=== PATIENT | female | born 1955 | race African-American/Black ===

== ENCOUNTER 2017-06-09 07:30 | Emergency (ER) | payer OTHER, MEDICAID ==
[~2017-06-09] VITALS: Ht 170.2 cm; Wt 105.0 kg
[2017-06-09] VITALS (7 sets, daily range): BP systolic 134–231; BP diastolic 73–110; PULSE 70–78; RESP 18–20; TEMP 98; O2SAT 94–98
[~2017-06-09 07:30] MED LIST: ENAL20TA81 PO; FLEX10TA PO; GLUC10TA3 PO; HYDR-2768 PO; JANU50TA9 PO; LORT7.5T3 PO; METO50CR PO
--- NOTE | 2017-06-09 07:47 | PD ---
HPI Chief Complaint: Hypertension Time Seen by Provider: 07:46 Travel History International Travel<30 days: No Contact w/Intl Traveler<30days: No Traveled to known affect area: No History of Present Illness HPI 61-year-old female came to the emergency room with history of headache and hypertension. Patient says that the headache has been going on for past 3-4 days. It came upon slowly and currently it is 8 out of 10. It's on the top of her head. No radiation. She usually does not get headache. Her blood pressure when she checked and was 231 systolic. Patient has history of hypertension and she had gone to see her primary care yesterday who had prescribed her a new medication that was called into the pharmacy but patient or her does not know the name of the medication. She appeared to be in some distress. [facility] Past Medical History Narrative Medical List of her past medical, surgical, social and family history is reviewed from the nursing note. Heart Rhythm Problems: No Cancer: No Cardiac Catheterization: No Cardiovascular Problems: No High Cholesterol: Yes Chest Pain: Yes Congestive Heart Failure: No Diabetes: Yes Diminished Hearing: No Endocrine: Yes Genitourinary: No Hepatitis: No Hiatal Hernia: No Hypertension: Yes Immune Disorder: No Musculoskeletal: Yes (back and right shoulder and neck) Neurologic: No Psychiatric: No Respiratory: No Immunizations Current: No Myocardial Infarction: No Thyroid Disease: Yes Tubal Ligation: Yes Past Surgical History AICD: No Coronary Artery Bypass Graft: No Endocrine Surgery: Yes (partial thyroidectomy) Genitourinary Surgery: Yes (tubaligation) Joint Replacement: No Pacemaker: No Social History Alcohol Use: Yes (BEER/OCCASIONALLY) Tobacco Use: No Substance Use: No Allergies-Medications (Allergen,Severity, Reaction): Coded Allergies: No Known Allergies (Verified , 06/09/17) Comments No known drug allergies Reported Meds & Prescriptions Reported Meds & Active Scripts Active Reported Aspirin Low Dose (Aspirin) 81 Mg Chew 81 Mg CHEW DAILY Enalapril (Enalapril Maleate) 20 Mg Tab 20 Mg PO DAILY Janumet (Sitagliptin-Metformin) 50-1,000 Mg Tab 1 Tab PO BID Rosuvastatin (Rosuvastatin Calcium) 10 Mg Tab 10 Mg PO HS Allopurinol 300 Mg Tab 300 Mg PO DAILY Glipizide 10 Mg Tab 10 Mg PO DAILY Take 30 minutes before a meal Metoprolol Tartrate 50 Mg Tab 50 Mg PO DAILY Narrative Medication List of her home medications reviewed from the nursing note. Review of Systems Except as stated in HPI: all other systems reviewed are Neg Cardiovascular: Positive: Syncope Physical Exam Narrative GENERAL: Awake, alert, obese, moderate distress SKIN: Focused skin assessment warm/dry. HEAD: Atraumatic. Normocephalic. EYES: Pupils equal and round. No scleral icterus. No injection or drainage. ENT: No nasal bleeding or discharge. Mucous membranes pink and moist. NECK: Trachea midline. No JVD. CARDIOVASCULAR: Regular rate and rhythm. No murmur appreciated. RESPIRATORY: No accessory muscle use. Clear to auscultation. Breath sounds equal bilaterally. GASTROINTESTINAL: Abdomen soft, non-tender, nondistended. Hepatic and splenic margins not palpable. MUSCULOSKELETAL: No obvious deformities. No clubbing. No cyanosis. No edema. NEUROLOGICAL: Awake and alert. No obvious cranial nerve deficits. Motor grossly within normal limits. Normal speech. PSYCHIATRIC: Appropriate mood and affect; insight and judgment normal. Data Data Last Documented VS Orders Orders Clonidine (Catapres) (06/09/17 08:15) Labetalol Inj (Trandate Inj) (06/09/17 08:15) Complete Blood Count With Diff (06/09/17 08:59) Basic Metabolic Panel (Bmp) (06/09/17 08:59) Ct Brain W/O Iv Contrast(Rout) (06/09/17 08:59) Ecg Monitoring (06/09/17 08:59) Iv Access Insert/Monitor (06/09/17 08:59) Oximetry (06/09/17 08:59) Sodium Chloride 0.9% Flush (Ns Flush) (06/09/17 09:00) Acetaminophen (Tylenol) (06/09/17 09:00) Metoclopramide Inj (Reglan Inj) (06/09/17 09:00) Sodium Chlorid 0.9% 500 Ml Inj (Ns 500 M (06/09/17 09:00) Labs Laboratory Tests Test 06/09/17 09:05 White Blood Count 5.9 TH/MM3 Red Blood Count 4.21 MIL/MM3 Hemoglobin 11.7 GM/DL Hematocrit 36.3 % Mean Corpuscular Volume 86.2 FL Mean Corpuscular Hemoglobin 27.8 PG Mean Corpuscular Hemoglobin Concent 32.2 % Red Cell Distribution Width 16.9 % Platelet Count 233 TH/MM3 Mean Platelet Volume 7.9 FL Neutrophils (%) (Auto) 45.8 % Lymphocytes (%) (Auto) 24.5 % Monocytes (%) (Auto) 11.2 % Eosinophils (%) (Auto) 17.9 % Basophils (%) (Auto) 0.6 % Neutrophils # (Auto) 2.7 TH/MM3 Lymphocytes # (Auto) 1.4 TH/MM3 Monocytes # (Auto) 0.7 TH/MM3 Eosinophils # (Auto) 1.1 TH/MM3 Basophils # (Auto) 0.0 TH/MM3 CBC Comment DIFF FINAL Differential Comment Blood Urea Nitrogen 26 MG/DL Creatinine 1.34 MG/DL Random Glucose 132 MG/DL Calcium Level 9.3 MG/DL Sodium Level 142 MEQ/L Potassium Level 4.0 MEQ/L Chloride Level 112 MEQ/L Carbon Dioxide Level 22.2 MEQ/L Anion Gap 8 MEQ/L Estimat Glomerular Filtration Rate 49 ML/MIN MDM Medical Decision Making Medical Screen Exam Complete: Yes Emergency Medical Condition: Yes Medical Record Reviewed: Yes Differential Diagnosis Essential hypertension, hypertensive crisis, hypertensive urgency, intracranial bleed Narrative Course 10:17 AM patient was given by mouth clonidine and IV labetalol to bring the blood pressure down. Blood test results are within normal limit and the CAT scan of her head is negative. I had ordered medication for headache which patient has not received yet. Upon reassessment her blood pressure has come down to 130 systolic. Patient says her headache is still the same. I have asked the nurse to give her the medication. I intend to discharge her home. Meanwhile her called the pharmacy upon my request to find out the medication name that was prescribed by her primary care and it is amlodipine 5 mg. She needs to get the prescription filled so that she can start taking the medication and keep the blood pressure under control. Procedures EKG Prior to Arrival: No Diagnosis Primary Impression: Hypertensive crisis Additional Impression: Headache Qualified Codes: R51 - Headache Referrals: Primary Care Physician Additional Instructions: Please follow-up with your primary care next couple days so that he can be reevaluated in terms of your blood pressure. Please start taking the new medication for blood pressure that your primary care has prescribed as soon as possible. Return to the ER if the condition worsens or any other new concerns. Med/Other Pt SpecificInfo: No Change to Meds Disposition: 01 DISCHARGE HOME Condition: Stable Meseret Almanzar MD Jun 09, 2017 07:47
[2017-06-09] MEDS ORDERED: JANU50TA8 PO (07:59)
[2017-06-09] MEDS ORDERED: ENAL20TA PO (07:59)
[2017-06-09] MEDS ORDERED: ASPI81CH37 CHEW (07:59)
[2017-06-09] MEDS ORDERED: ROSU1TAB6 PO (07:59)
[2017-06-09] MEDS ORDERED: METO50TA PO (07:59)
[2017-06-09] MEDS ORDERED: GLIP10TA6 PO (07:59)
[2017-06-09] MEDS ORDERED: ALLO300T2 PO (07:59)
[2017-06-09] MEDS ORDERED: LABETALOL HCL 100 MG/20 ML VIAL IV PUSH ONE (08:15)
[2017-06-09] MEDS ORDERED: cloNIDine HCL 0.1 MG TAB PO ONE (08:15)
[2017-06-09] MEDS ORDERED: SODIUM CHLORID 0.9% 500 ML INJ 500 ML IV ONE (09:00)
[2017-06-09] MEDS ORDERED: SODIUM CHLORIDE 0.9% FLUSH 10 ML FLUSH IVF PRN (09:00)
[2017-06-09] MEDS ORDERED: ACETAMINOPHEN 325 MG TAB PO ONE (09:00)
[2017-06-09] MEDS ORDERED: METOCLOPRAMIDE HCL 10 MG/2 ML VIAL IVP ONE (09:00)
[2017-06-09 09:23] LABS: AUTOMATED NEUTROPHIL # 2.7 TH/MM3 (1.8-7.7); BASOPHIL % 0.6 % (0.0-2.0); EOSINOPHIL # 1.1 TH/MM3 (0-0.4); EOSINOPHIL % 17.9 % (0.0-4.0); HEMATOCRIT 36.3 % (35.0-46.0); HEMO FLAGS DIFF FINAL; LYMPH % 24.5 % (9.0-44.0); LYMPHOCYTE # 1.4 TH/MM3 (1.0-4.8); MEAN CELL VOLUME 86.2 FL (80.0-100.0); MEAN CORPUSCULAR HEMOGLOBIN 27.8 PG (27.0-34.0); MEAN CORPUSCULAR HGB CONC 32.2 % (32.0-36.0); MONO % 11.2 % (0.0-8.0); NEUT % 45.8 % (16.0-70.0); PLATELET COUNT 233 TH/MM3 (150-450); RED BLOOD COUNT 4.21 MIL/MM3 (4.00-5.30); RED CELL DISTRIBUTION WIDTH 16.9 % (11.6-17.2); WHITE BLOOD COUNT 5.9 TH/MM3 (4.0-11.0)
[2017-06-09 09:47] LABS: BICARBONATE 22.2 MEQ/L (21.0-32.0)
--- NOTE | 2017-06-09 10:08 | RADRPT ---
EXAM DATE/TIME: 06/09/2017 09:52 [facility] COMPARISON: No previous studies available for comparison. INDICATIONS : Cephalgia. RADIATION DOSE: 56.35 CTDIvol (mGy) MEDICAL HISTORY : Diabetes mellitus type 2. Hypertension. SURGICAL HISTORY : Tubal ligation. ENCOUNTER: Initial ACUITY: 1 day PAIN SCALE: 5/10 LOCATION: cranial TECHNIQUE: Multiple contiguous axial images were obtained of the head. Using automated exposure control and adj ustment of the mA and/or kV according to patient size, radiation dose was kept as low as reasonably a chievable to obtain optimal diagnostic quality images. DICOM format image data is available electro nically for review and comparison. FINDINGS: CEREBRUM: The ventricles are normal for age. No evidence of midline shift, mass lesion, hemorrhage or acute in farction. No extra-axial fluid collections are seen. POSTERIOR FOSSA: The cerebellum and brainstem are intact. The 4th ventricle is midline. The cerebellopontine angle i s unremarkable. EXTRACRANIAL: The visualized portion of the orbits is intact. SKULL: The calvaria is intact. No evidence of skull fracture. CONCLUSION: Normal examination for a patient of this age. Haroon Saravia MD on June 09, 2017 at 10:06 Board Certified Radiologist. This report was verified electronically.
== END 2017-06-09 11:48 | disposition home or self-care (01) ==
LOC: NEPE 07:30
DX: I16.9 Hypertensive crisis, unspecified (principal); I10 Essential (primary) hypertension; R51 Headache; E11.9 Type 2 diabetes mellitus without complications
CPT/HCPCS: 70450; 80048; 85025; 96361; 96374; 96375; 99285; J2765; J7040